=== PATIENT | male | born 1945 | race Caucasian/White ===

== ENCOUNTER → 2019-09-23 | Day surgery (SDC) | payer MEDICARE ==
[~2019-09-23] MED LIST: AMLODIPINE BESY10 MG PO; BUPIVACAINE 0.5%/EPI 30 ML SDV INJ ONE; DEXAMETHASONE SOD PHOS INJ 4 MG/ML VIAL ONE; ETODOLAC600 MG PO; FENTANYL CITRATE/PF 100MCG/2 ML INJ ONE; FOSINOPRIL SODI10 MG PO; HYDROCODONE/APAP 7.5MG-325MG 1 EA TAB ONE; KETAMINE HCL INJ 50 MG/ML 10 ML VIAL ONE; LABETALOL HCL 5 MG/ML 20ML VIAL ONE; LIDOCAINE HCL 2% LOCAL INJ 5 ML SDV VIAL INJ ONE; MULTI-VITAMIN1 EACH PO; ONDANSETRON HCL INJ 2MG/ML 2ML 2 MG/ML VIAL ONE; PREDNISONE10 MG PO; PROPOFOL IV EMULSION 10 MG/ML 20 ML VIAL ONE; ROCURONIUM BROMIDE 10 MG/ML 5ML VIAL ONE; SEVOFLURANE INHAL SOLN 250 ML PEN BTL ONE
[2019-09-23 11:19] LABS: BASOPHILS # (AUTO) 0.1 (0.0-0.1); BASOPHILS % 0.9 % (0.0-1.0); EOSINOPHILS # (AUTO) 0.2 (0.0-0.4); EOSINOPHILS % 3.1 % (0.0-6.0); HEMATOCRIT 38.4 % (38.2-49.6); HEMOGLOBIN 11.6 g/dL (14.0-18.0); LYMPHOCYTES # (AUTO) 1.2 (1.0-3.2); LYMPHOCYTES % 17.5 % (18.0-39.1); MEAN CORPUSCULAR HEMOGLOBIN 25.4 pg (28-32); MEAN CORPUSCULAR HGB CONC 30.2 g/dL (31-35); MONOCYTES # (AUTO) 0.9 (0.2-0.8); MONOCYTES % 13.3 % (4.4-11.3); NEUTROPHILS # (AUTO) 4.5 (2.1-6.9); NEUTROPHILS % 65.1 % (38.7-80.0); PLATELET COUNT 258 x10e3/uL (140-360); RED BLOOD COUNT 4.57 x10e6/uL (4.3-5.7); RED CELL DISTRIBUTION WIDTH 16.2 % (11.7-14.4)
[2019-09-23 11:39] LABS: ANION GAP 15.8 mmol/L (8-16); BLOOD UREA NITROGEN 13 mg/dL (7-26); BUN/CREATININE RATIO 12 (6-25); CALCIUM 10.1 mg/dL (8.4-10.2); CARBON DIOXIDE 26 mmol/L (22-29); CHLORIDE 105 mmol/L (98-107); CREATININE, SERUM 1.12 mg/dL (0.72-1.25); EST GLOMERULAR FILTRATION RATE > 60 ML/MIN (60-); GLUCOSE 96 mg/dL (74-118); POTASSIUM 3.8 mmol/L (3.5-5.1); SODIUM 143 mmol/L (136-145)
--- NOTE | 2019-09-23 11:59 | Diagnostic Imaging Report ---
EXAMINATION: PA and lateral views of the chest. COMPARISON: None CLINICAL HISTORY: Preoperative evaluation DISCUSSION: Lines/tubes: None. Lungs: The lungs are well inflated and clear. No pneumonia or pulmonary edema. Pleura: No pleural effusion or pneumothorax. Heart and mediastinum: The cardiomediastinal silhouette is normal. Bones and soft tissues: No acute bony abnormalities. IMPRESSION: No acute cardiopulmonary abnormalities. Signed by: Dr. Garrett Flynn M.D. on 09/23/2019 11:56 AM
[2019-09-23 18:15] VITALS: BP 127/81
--- NOTE | 2019-09-23 23:16 | Operative Report ---
DATE OF PROCEDURE: 09/23/2019 SURGEON: Tyree King MD PREOPERATIVE DIAGNOSIS: Left neck adenopathy, rule out malignancy. POSTOPERATIVE DIAGNOSIS: Left neck adenopathy, rule out malignancy. OPERATION PERFORMED: Left neck lymphadenectomy. PAPER REWINDER OPERATOR: KATIE Hickman. ANESTHESIA: General. COMPLICATIONS: None. ESTIMATED BLOOD LOSS: Minimal. DESCRIPTION OF PROCEDURE: With the patient is lying in bed in the supine position under good general anesthesia, the left neck was prepped with Betadine solution and draped in the usual manner. The area overlying the palpable adenopathy in the posterior triangle in the left neck was then infiltrated with 0.25% Marcaine with epinephrine. An incision was made was carried down through the subcutaneous tissue and through the platysma. A hard lymph node was encountered, which was probably about 2 cm in size. This was then slowly and carefully from all of the surrounding structures and removed and sent for pathological examination. All bleeding points were either electrocoagulated or ligated with 3-0 Vicryl ties. The whole area was thoroughly irrigated. Perfect hemostasis was ascertained. The platysma was then reapproximated with interrupted sutures of 3-0 Vicryl. The subcutaneous tissue was approximated with 3-0 Vicryl and the skin was closed with subcuticular 5-0 Vicryl. Benzoin Steri-Strips and dressings were applied. The sponge, lap, and needle counts were correct. The patient tolerated the procedure well and returned to the recovery room in stable condition. Tyree King MD JLR/MODL /[id number]
== END | disposition home or self-care (01) ==
LOC: OR 10:28
PROVIDERS: ATTEND Surgery
DX: C81.71 Other Hodgkin lymphoma, lymph nodes of head, face, and neck (principal); B27.00 Gammaherpesviral mononucleosis without complication; I10 Essential (primary) hypertension
CPT/HCPCS: 36415; 38510; 71046; 80048; 85025; 88305; 93005; J1100; J2001; J2405; J2704; J3010; J3490; 88304

== ENCOUNTER → 2019-10-11 | Day surgery (SDC) | payer OTHER ==
[~2019-10-11] MED LIST changes: +BUPIVACAINE 0.25% 30ML SDV INJ ONE; -BUPIVACAINE 0.5%/EPI 30 ML SDV INJ ONE; -DEXAMETHASONE SOD PHOS INJ 4 MG/ML VIAL ONE; +FERROUS SULFAT325 MG PO; +HEPARIN SOD (PORCINE) 5,000 UNIT/ML VIAL ONE; -HYDROCODONE/APAP 7.5MG-325MG 1 EA TAB ONE; -KETAMINE HCL INJ 50 MG/ML 10 ML VIAL ONE; -LABETALOL HCL 5 MG/ML 20ML VIAL ONE; +LIDOCAINE HCL 1% LOCAL INJ 20 ML VIAL ONE; -ONDANSETRON HCL INJ 2MG/ML 2ML 2 MG/ML VIAL ONE; -ROCURONIUM BROMIDE 10 MG/ML 5ML VIAL ONE; +SODIUM CHLORIDE 0.9% 500ML 500 ML ONE; +VITAMIN B122500 MCG PO
[2019-10-11 13:50] VITALS: BP 129/66
--- NOTE | 2019-10-11 20:18 | Operative Report ---
DATE OF PROCEDURE: 10/11/2019 SURGEON: Tyree King MD PREOPERATIVE DIAGNOSIS: Lymphoma, needing IV access for chemotherapy. POSTOPERATIVE DIAGNOSIS: Lymphoma, needing IV access for chemotherapy. OPERATION PERFORMED: Placement of left subclavian venous access port under C-arm guidance. PROPERTY INVESTOR: KATIE Hickman. ANESTHESIA: General. COMPLICATIONS: None. ESTIMATED BLOOD LOSS: Minimal. DESCRIPTION OF PROCEDURE: With the patient lying in bed in the Trendelenburg position under good general anesthesia, the left chest and neck were prepped with Betadine solution and draped in the usual manner. Standard left subclavian venipuncture was performed without any difficulty and a guidewire was advanced into central venous position. Using the C-arm, the tip of the guidewire was confirmed to be at the level of the superior vena cava and the left lung was fully expanded. A pocket was then created in the left anterior chest to accept the reservoir and the catheter was then threaded to the subclavian position and the reservoir was anchored to the anterior chest wall using interrupted sutures of 2-0 silk. The reservoir and catheter were fully heparinized and the catheter was cut to the appropriate length. The peel-away sheath introducer was then placed over the guidewire. The guidewire was removed and the catheter was threaded through the peel-away sheath introducer. The peel-away sheath was then removed. There was good blood return and the catheter was fully heparinized. Using the C-arm, the tip of the catheter was confirmed to be at the level of the superior vena cava and the left lung was fully expanded. The wounds were then closed in layers. The subcutaneous tissue was approximated with 3-0 and 4-0 Vicryl and the skin was closed with subcuticular 5-0 Vicryl. Benzoin, Steri-Strips, and dressings were applied. The sponge, lap, and needle count was correct. The patient tolerated the procedure well and returned to the recovery room in stable condition. MD QUINTIN Gan/KAYL /[id number]
== END | disposition home or self-care (01) ==
LOC: OR 10:26
PROVIDERS: ATTEND Surgery
DX: C85.90 Non-Hodgkin lymphoma, unspecified, unspecified site (principal); I10 Essential (primary) hypertension; M06.9 Rheumatoid arthritis, unspecified
CPT/HCPCS: 36561; 76000; C1751; J1644; J2001; J2704; J3010; J7040